=== PATIENT | male | born 1960 | race Caucasian/White ===

== ENCOUNTER 2020-08-27 19:54 | Emergency (ER) | payer OTHER ==
[~2020-08-27] VITALS: Ht 177.8 cm; Wt 93.4 kg
[2020-08-27 20:01] VITALS: BP 122/72
--- NOTE | 2020-08-27 20:01 | NUR ---
TO BED AMBULATORY
--- NOTE | 2020-08-27 20:18 | NUR ---
XRAY AT BEDSIDE.
--- NOTE | 2020-08-27 20:26 | NUR ---
ERMD AT BEDSIDE FOR MEDICAL EVALUATION.
[2020-08-27 20:49] LABS: HEMATOCRIT 26.3 % (36-52); HEMOGLOBIN 7.9 g/dL (12.0-18.0); MEAN CORPUSCULAR HEMOGLOBIN 22 pg (27-31); MEAN CORPUSCULAR HGB CONC 30 g/dL (33-37); PLATELET COUNT (AUTO) 249 K/uL (140-450); RED BLOOD CELL COUNT(AUTO) 3.65 MIL/uL (4.20-6.10); RED CELL DISTRIBUTION WIDTH 19.6 % (11.6-13.7); WHITE BLOOD COUNT (AUTO) 5.8 K/uL (4.8-10.8)
[2020-08-27 21:10] LABS: ANION GAP 12.5 (8-16); CARBON DIOXIDE 25.5 mmol/L (21-32); CREATININE 1.6 mg/dL (0.6-1.3); TOTAL BILIRUBIN 0.3 mg/dL (0.0-1.0)
--- NOTE | 2020-08-27 21:20 | NUR ---
PT. IS A 59 Y/O MALE THAT CAME INTO ED WITH C/O OF LOW HEMOGLOBIN. PT. STATES THAT HE WAS IN A ROUTINE DR. DIEHL 2 DAYS AGO THAT CHECKED HIS HEMOGLOBIN. PT. STATES THAT THIS IS NOT THE FIRST TIME IT HAS HAPPENED AND HE HAS A HISTORY OF ANEMIA. PT. RATES HIS PAIN AT A 0/10 ON THE PAIN SCALE AT THIS TIME. DENIES N/V/D; SKIN IS PINK/WARM/DRY; AAOX4 WITH EVEN AND STEADY GAIT; LUNGS CLEAR BL; HR EVEN AND REGULAR; PT DENIES ANY FEVER, CP, SOB, OR COUGH AT THIS TIME; VSS; PATIENT POSITIONED FOR COMFORT; HOB ELEVATED; BEDRAILS UP X2; BED DOWN. ER MADE AWARE OF PT STATUS. PMH: ANEMIA, HTN, "PROSTATE PROBLEMS" ALLERGIES: [place] Addendum: 08/27/20 at 2121 by [facility] ASSESSMENT TIME @ 2009
[2020-08-27 21:24] LABS: EOSINOPHILS % (MANUAL) 4 % (0-4); LYMPHOCYTES % (MANUAL) 17 % (20-46); MONOCYTES % (MANUAL) 8 % (5-12)
[2020-08-27] MEDS ORDERED: AZIT250T4 PO (21:58)
--- NOTE | 2020-08-27 22:08 | NUR ---
Patient discharged with v/s stable. Written and verbal after care instructions given and explained. Patient alert, oriented and verbalized understanding of instructions. Ambulatory with steady gait. All questions addressed prior to discharge. ID band removed. Patient advised to follow up with PMD. Rx of AZITHROMYCIN given. Patient educated on indication of medication including possible reaction and side effects. Opportunity to ask questions provided and answered.
== END 2020-08-27 22:08 | disposition home or self-care (01) ==
LOC: MED 19:54
DX: D64.9 Anemia, unspecified (principal); J18.9 Pneumonia, unspecified organism; I50.9 Heart failure, unspecified; Z98.890 Other specified postprocedural states; Z88.8 Allergy status to other drugs, medicaments and biological substances
CPT/HCPCS: 36415; 71045; 80053; 84484; 85025; 86870; 86886; 86900; 86901; 93005; 99285